=== PATIENT | female | born 1985 | race Caucasian/White ===

== ENCOUNTER 2019-04-18 08:44 | Day surgery (SDC) | payer MEDICAID ==
[2019-04-13 11:59] LABS: BASOPHILS % (AUTO) 0.5 % (0-1); EOSINOPHILS # (AUTO) 0.1 X10'3 (0-0.9); EOSINOPHILS % (AUTO) 1.2 % (0-6); LYMPHOCYTES # (AUTO) 1.9 X10'3 (1.1-4.8); LYMPHOCYTES % (AUTO) 27.7 % (21-51); MEAN CORPUSCULAR HEMOGLOBIN 29.3 PG (27.0-31.0); MEAN CORPUSCULAR HGB CONC 33.9 g/dL (33.0-36.5); MEAN CORPUSCULAR VOLUME 86.3 FL (78-98); MEAN PLATELET VOLUME 7.3 FL (7.4-10.4); MONOCYTES # (AUTO) 0.4 X10'3 (0-0.9); MONOCYTES % (AUTO) 5.8 % (2-12); NEUTROPHILS # (AUTO) 4.6 X10'3 (1.8-7.7); NEUTROPHILS % (AUTO) 64.8 % (42-75); PRE OP HEMATOCRIT 39.5 % (35.0-45.0); PRE OP HEMOGLOBIN 13.4 g/dL (12.0-16.0); PRE OP PLATELET COUNT 312 X10'3 (140-440); RED BLOOD COUNT 4.58 X10'6 (4.20-5.60); RED CELL DISTRIBUTION WIDTH 12.7 % (11.5-14.5)
[2019-04-13 12:13] LABS: ALBUMIN 3.9 G/DL (3.4-5.0); ALBUMIN/GLOBULIN RATIO 1.1 (1.1-1.5); ALKALINE PHOSPHATASE 72 IU/L (46-116); BLOOD UREA NITROGEN 11 MG/DL (7-18); BUN/CREATININE RATIO 15.9 (6.6-38.0); CALCIUM 8.9 MG/DL (8.5-10.1); CHLORIDE 104 MMOL/L (99-107); CREATININE 0.69 MG/DL (0.40-0.90); PRE OP ALT 37 U/L (30-65); PRE OP ANION GAP 6 (8-16); PRE OP AST 23 U/L (10-37); PRE OP BILIRUB, TOTAL 0.3 MG/DL (0.0-1.0); PRE OP GLUCOSE 72 MG/DL (70-104); PRE OP POTASSIUM 3.8 MMOL/L (3.4-5.1); PRE OP SODIUM 140 MMOL/L (135-145); TOTAL CARBON DIOXIDE 30.1 MMOL/L (24-32); TOTAL PROTEIN 7.5 G/DL (6.4-8.2); eGFR > 90 ML/MIN
[2019-04-13 13:00] LABS: HCG SERUM QL NEGATIVE
[~2019-04-18] VITALS: Ht 177.8 cm; Wt 116.6 kg
[2019-04-18] VITALS (9 sets, daily range): BP systolic 123–142; BP diastolic 70–80
[~2019-04-18 08:44] MED LIST: CHOL50004 PO; DOCUMENT DATE & TIME OF BETA-BLOCKER PO ONE; FLUO-1 PO; LEVO750T21 PO; METO-395 PO; METR-159 PO; ONDA4TAB12 PO; RIZA10TA98 PO; SUMA100T16 PO; clindamycin-Cleocin 900mg/D5W 50 ML IV ONE; famotidine 20mg tablet PO ONE; ringers solution, lacted 1,000 ML IV SCH
[2019-04-18] MEDS ORDERED: LIDOcaine 1% 30ml preserv. free vial ONE (09:39)
[2019-04-18] MEDS ORDERED: BUPIVAcaine/PF 2.5 mg/ml (0.25%) 30ml vial ONE (09:40)
[2019-04-18] MEDS ORDERED: ringers solution, lacted 1,000 ML IV SCH (10:32)
[2019-04-18] MEDS ORDERED: fentaNYL/PF 50MCG/1 ML 2ML syringe IV PRN ×2 (10:35)
[2019-04-18] MEDS ORDERED: labetalol 20mg/4ml (5mg/ml) syringe IV PRN (10:35)
[2019-04-18] MEDS ORDERED: morphine 4 MG/ML inj SYRINge IV PRN ×2 (10:35)
[2019-04-18] MEDS ORDERED: hydrALAZINE 20mg/ml inj. IV PRN (10:35)
[2019-04-18] MEDS ORDERED: ondansetron/PF 4mg/2ml inj IV PRN (10:35)
[2019-04-18] MEDS ORDERED: MIDAZolam 1mg/ml 10ml vial ONE (10:36)
[2019-04-18] MEDS ORDERED: fentaNYL/PF 50MCG/1 ML 2ML syringe ONE (10:36)
[2019-04-18] MEDS ORDERED: labetalol 20mg/4ml (5mg/ml) syringe IV ONE ×2 (10:44→10:58)
[2019-04-18] MEDS ORDERED: hydrALAZINE 20mg/ml inj. IV ONE (10:51)
--- NOTE | 2019-04-18 11:12 | NUR ---
Received from OR via , accompanied by Anesthesiologist DARRELL and report given by Anesthesiolgist. AWAKE IN NO RESP DISTRESS SKIN WARM AND DRY HOB ELEVATED, DSG DI, NO CO PAIN, VS WNL
[2019-04-18] MEDS ORDERED: oxyCODONE/APAP 5-325mg tablet PO PRN (11:25)
--- NOTE | 2019-04-18 12:22 | NUR ---
AWAKE VS WNL, DSG DI, NO CO PAIN, REFUSES LIQUIDS, NO NAUSEA, DISCH INST GIVEN TO PT AND MOM, SCRIPT SENT WITH PT HOME..
== END 2019-04-18 12:22 | disposition home or self-care (01) ==
LOC: PAS 08:44
PROVIDERS: ATTEND Surgery
DX: R22.2 Localized swelling, mass and lump, trunk (principal); I10 Essential (primary) hypertension; F41.9 Anxiety disorder, unspecified; F32.9 Major depressive disorder, single episode, unspecified; G43.909 Migraine, unspecified, not intractable, without status migrainosus; J45.909 Unspecified asthma, uncomplicated; E66.9 Obesity, unspecified; Z68.37 Body mass index [BMI] 37.0-37.9, adult; Z88.8 Allergy status to other drugs, medicaments and biological substances; Z90.49 Acquired absence of other specified parts of digestive tract; Z91.09 Other allergy status, other than to drugs and biological substances; Z79.899 Other long term (current) drug therapy; Z88.0 Allergy status to penicillin; Z88.2 Allergy status to sulfonamides; Z87.891 Personal history of nicotine dependence; Z91.030 Bee allergy status; Z91.013 Allergy to seafood; Z91.018 Allergy to other foods; Z86.14 Personal history of Methicillin resistant Staphylococcus aureus infection
CPT/HCPCS: 27043; 36415; 80053; 82948; 84703; 85025; 93005; J0360; J2001; J2250; J3010; J3490; J7120; A4215; A4618; A7000

== ENCOUNTER 2019-05-18 10:05 | Day surgery (SDC) | payer MEDICAID ==
[~2019-05-18 10:05] MED LIST changes: -DOCUMENT DATE & TIME OF BETA-BLOCKER PO ONE; -clindamycin-Cleocin 900mg/D5W 50 ML IV ONE; -famotidine 20mg tablet PO ONE; -ringers solution, lacted 1,000 ML IV SCH
[2019-05-18] MEDS ORDERED: LIDOcaine 2% 5ml jelly ONE (10:42)
== END 2019-05-18 11:35 | disposition home or self-care (01) ==
LOC: WOUND CARE 10:05
PROVIDERS: ATTEND Surgery
DX: T81.89XD Other complications of procedures, not elsewhere classified, subsequent encounter (principal); L76.34 Postprocedural seroma of skin and subcutaneous tissue following other procedure; I10 Essential (primary) hypertension; G43.909 Migraine, unspecified, not intractable, without status migrainosus; E66.9 Obesity, unspecified; J45.909 Unspecified asthma, uncomplicated; E28.2 Polycystic ovarian syndrome; F32.9 Major depressive disorder, single episode, unspecified; F41.9 Anxiety disorder, unspecified; Z90.49 Acquired absence of other specified parts of digestive tract; Z68.35 Body mass index [BMI] 35.0-35.9, adult; Z79.899 Other long term (current) drug therapy; Z87.891 Personal history of nicotine dependence; Z86.14 Personal history of Methicillin resistant Staphylococcus aureus infection; Y92.89 Other specified places as the place of occurrence of the external cause; Y83.8 Other surgical procedures as the cause of abnormal reaction of the patient, or of later complication, without mention of misadventure at the time of the procedure
CPT/HCPCS: 10140; A6266; A4663

== ENCOUNTER 2019-05-22 09:08 | Day surgery (SDC) | payer MEDICAID ==
[2019-05-22] MEDS ORDERED: LIDOcaine 2% 5ml jelly ONE (09:29)
== END 2019-05-22 10:50 | disposition home or self-care (01) ==
LOC: WOUND CARE 09:08
PROVIDERS: ATTEND Surgery
DX: T81.89XD Other complications of procedures, not elsewhere classified, subsequent encounter (principal); L76.34 Postprocedural seroma of skin and subcutaneous tissue following other procedure; I10 Essential (primary) hypertension; E28.2 Polycystic ovarian syndrome; G43.909 Migraine, unspecified, not intractable, without status migrainosus; E66.9 Obesity, unspecified; F32.9 Major depressive disorder, single episode, unspecified; J45.909 Unspecified asthma, uncomplicated; F41.9 Anxiety disorder, unspecified; Z79.899 Other long term (current) drug therapy; Z68.35 Body mass index [BMI] 35.0-35.9, adult; Z90.49 Acquired absence of other specified parts of digestive tract; Z87.891 Personal history of nicotine dependence; Z86.14 Personal history of Methicillin resistant Staphylococcus aureus infection; Y83.8 Other surgical procedures as the cause of abnormal reaction of the patient, or of later complication, without mention of misadventure at the time of the procedure
CPT/HCPCS: 97597; A6266; A4663

== ENCOUNTER 2019-05-25 09:25 | Outpatient (CLI) | payer MEDICAID ==
[2019-05-25] MEDS ORDERED: LIDOcaine 2% 5ml jelly ONE (09:36)
== END 2019-05-25 10:17 | disposition home or self-care (01) ==
LOC: WOUND CARE 09:25 → EDSTATUS 09:30 → WOUND CARE 10:17
PROVIDERS: ATTEND Surgery
DX: T81.89XD Other complications of procedures, not elsewhere classified, subsequent encounter (principal); L76.34 Postprocedural seroma of skin and subcutaneous tissue following other procedure; I10 Essential (primary) hypertension; G43.909 Migraine, unspecified, not intractable, without status migrainosus; E66.9 Obesity, unspecified; J45.909 Unspecified asthma, uncomplicated; E28.2 Polycystic ovarian syndrome; F32.9 Major depressive disorder, single episode, unspecified; F41.9 Anxiety disorder, unspecified; Z90.49 Acquired absence of other specified parts of digestive tract; Z68.35 Body mass index [BMI] 35.0-35.9, adult; Z79.899 Other long term (current) drug therapy; Z87.891 Personal history of nicotine dependence; Z86.14 Personal history of Methicillin resistant Staphylococcus aureus infection; Y92.89 Other specified places as the place of occurrence of the external cause; Y83.8 Other surgical procedures as the cause of abnormal reaction of the patient, or of later complication, without mention of misadventure at the time of the procedure
CPT/HCPCS: A6266; G0463; A4663

== ENCOUNTER 2019-05-29 09:15 | Outpatient (CLI) | payer MEDICAID ==
[2019-05-29] MEDS ORDERED: LIDOcaine 2% 5ml jelly ONE (09:59)
== END 2019-05-29 11:20 | disposition home or self-care (01) ==
LOC: WOUND CARE 09:15 → EDSTATUS 09:30 → WOUND CARE 11:20
PROVIDERS: ATTEND Surgery
DX: T81.89XD Other complications of procedures, not elsewhere classified, subsequent encounter (principal); L76.34 Postprocedural seroma of skin and subcutaneous tissue following other procedure; I10 Essential (primary) hypertension; G43.909 Migraine, unspecified, not intractable, without status migrainosus; E66.9 Obesity, unspecified; J45.909 Unspecified asthma, uncomplicated; E28.2 Polycystic ovarian syndrome; F32.9 Major depressive disorder, single episode, unspecified; F41.9 Anxiety disorder, unspecified; Z90.49 Acquired absence of other specified parts of digestive tract; Z68.35 Body mass index [BMI] 35.0-35.9, adult; Z79.899 Other long term (current) drug therapy; Z87.891 Personal history of nicotine dependence; Z86.14 Personal history of Methicillin resistant Staphylococcus aureus infection; Y83.8 Other surgical procedures as the cause of abnormal reaction of the patient, or of later complication, without mention of misadventure at the time of the procedure
CPT/HCPCS: A4663; A6021; G0463

== ENCOUNTER 2019-06-05 09:00 | Outpatient (CLI) | payer MEDICAID ==
[2019-06-05] MEDS ORDERED: LIDOcaine 2% 5ml jelly ONE (09:58)
== END 2019-06-05 10:36 | disposition home or self-care (01) ==
LOC: EDSTATUS 09:00 → WOUND CARE 09:00
PROVIDERS: ATTEND Surgery
DX: T81.89XD Other complications of procedures, not elsewhere classified, subsequent encounter (principal); L76.34 Postprocedural seroma of skin and subcutaneous tissue following other procedure; I10 Essential (primary) hypertension; G43.909 Migraine, unspecified, not intractable, without status migrainosus; E66.9 Obesity, unspecified; J45.909 Unspecified asthma, uncomplicated; E28.2 Polycystic ovarian syndrome; F32.9 Major depressive disorder, single episode, unspecified; F41.9 Anxiety disorder, unspecified; Z90.49 Acquired absence of other specified parts of digestive tract; Z68.35 Body mass index [BMI] 35.0-35.9, adult; Z79.899 Other long term (current) drug therapy; Z87.891 Personal history of nicotine dependence; Z86.14 Personal history of Methicillin resistant Staphylococcus aureus infection; Y83.8 Other surgical procedures as the cause of abnormal reaction of the patient, or of later complication, without mention of misadventure at the time of the procedure
CPT/HCPCS: A4663; A6021; A6154; A6212; G0463

== ENCOUNTER 2019-06-12 09:05 | Outpatient (CLI) | payer MEDICAID ==
[2019-06-12] MEDS ORDERED: LIDOcaine 2% 5ml jelly ONE (09:37)
== END 2019-06-12 10:43 | disposition home or self-care (01) ==
LOC: WOUND CARE 09:05
PROVIDERS: ATTEND Surgery
DX: T81.89XD Other complications of procedures, not elsewhere classified, subsequent encounter (principal); L76.34 Postprocedural seroma of skin and subcutaneous tissue following other procedure; I10 Essential (primary) hypertension; G43.909 Migraine, unspecified, not intractable, without status migrainosus; E28.2 Polycystic ovarian syndrome; F32.9 Major depressive disorder, single episode, unspecified; F41.9 Anxiety disorder, unspecified; Z90.49 Acquired absence of other specified parts of digestive tract; Z68.35 Body mass index [BMI] 35.0-35.9, adult; Z79.899 Other long term (current) drug therapy; Z87.891 Personal history of nicotine dependence; Z86.14 Personal history of Methicillin resistant Staphylococcus aureus infection; Y83.8 Other surgical procedures as the cause of abnormal reaction of the patient, or of later complication, without mention of misadventure at the time of the procedure
CPT/HCPCS: G0283; G0463

== ENCOUNTER 2019-07-03 09:00 | Day surgery (SDC) | payer MEDICAID ==
[2019-07-03] MEDS ORDERED: LIDOcaine 2% 5ml jelly ONE (10:09)
== END 2019-07-03 10:43 | disposition home or self-care (01) ==
LOC: WOUND CARE 09:00
PROVIDERS: ATTEND Surgery
DX: T81.89XD Other complications of procedures, not elsewhere classified, subsequent encounter (principal); L98.492 Non-pressure chronic ulcer of skin of other sites with fat layer exposed; L76.34 Postprocedural seroma of skin and subcutaneous tissue following other procedure; I10 Essential (primary) hypertension; G43.909 Migraine, unspecified, not intractable, without status migrainosus; E28.2 Polycystic ovarian syndrome; F32.9 Major depressive disorder, single episode, unspecified; F41.9 Anxiety disorder, unspecified; Z90.49 Acquired absence of other specified parts of digestive tract; Z68.35 Body mass index [BMI] 35.0-35.9, adult; Z79.899 Other long term (current) drug therapy; Z87.891 Personal history of nicotine dependence; Z86.14 Personal history of Methicillin resistant Staphylococcus aureus infection; Y83.8 Other surgical procedures as the cause of abnormal reaction of the patient, or of later complication, without mention of misadventure at the time of the procedure
CPT/HCPCS: 97597

== ENCOUNTER 2019-07-10 09:06 | Day surgery (SDC) | payer MEDICAID ==
[2019-07-10] MEDS ORDERED: LIDOcaine 2% 5ml jelly ONE (10:04)
== END 2019-07-10 10:45 | disposition home or self-care (01) ==
LOC: WOUND CARE 09:06
PROVIDERS: ATTEND Surgery
DX: T81.89XD Other complications of procedures, not elsewhere classified, subsequent encounter (principal); L98.492 Non-pressure chronic ulcer of skin of other sites with fat layer exposed; L76.34 Postprocedural seroma of skin and subcutaneous tissue following other procedure; I10 Essential (primary) hypertension; G43.909 Migraine, unspecified, not intractable, without status migrainosus; E28.2 Polycystic ovarian syndrome; F32.9 Major depressive disorder, single episode, unspecified; F41.9 Anxiety disorder, unspecified; Z90.49 Acquired absence of other specified parts of digestive tract; Z68.35 Body mass index [BMI] 35.0-35.9, adult; Z79.899 Other long term (current) drug therapy; Z87.891 Personal history of nicotine dependence; Z86.14 Personal history of Methicillin resistant Staphylococcus aureus infection; Y83.8 Other surgical procedures as the cause of abnormal reaction of the patient, or of later complication, without mention of misadventure at the time of the procedure
CPT/HCPCS: 97597; A6021; A6212

== ENCOUNTER 2019-07-17 09:10 | Day surgery (SDC) | payer MEDICAID ==
[2019-07-17] MEDS ORDERED: LIDOcaine 2% 5ml jelly ONE (10:19)
== END 2019-07-17 10:57 | disposition home or self-care (01) ==
LOC: WOUND CARE 09:10
PROVIDERS: ATTEND Surgery
DX: T81.89XD Other complications of procedures, not elsewhere classified, subsequent encounter (principal); L98.492 Non-pressure chronic ulcer of skin of other sites with fat layer exposed; L76.34 Postprocedural seroma of skin and subcutaneous tissue following other procedure; I10 Essential (primary) hypertension; G43.909 Migraine, unspecified, not intractable, without status migrainosus; E28.2 Polycystic ovarian syndrome; F32.9 Major depressive disorder, single episode, unspecified; F41.9 Anxiety disorder, unspecified; Z90.49 Acquired absence of other specified parts of digestive tract; Z68.35 Body mass index [BMI] 35.0-35.9, adult; Z79.899 Other long term (current) drug therapy; Z87.891 Personal history of nicotine dependence; Z86.14 Personal history of Methicillin resistant Staphylococcus aureus infection; Y83.8 Other surgical procedures as the cause of abnormal reaction of the patient, or of later complication, without mention of misadventure at the time of the procedure
CPT/HCPCS: 97597; A4663; A6021; A6212

== ENCOUNTER 2019-07-24 09:09 | Day surgery (SDC) | payer MEDICAID ==
[2019-07-24] MEDS ORDERED: LIDOcaine 2% 5ml jelly ONE (10:34)
[2019-07-24] MEDS ORDERED: Silvasorb gel 45gm tube TP ONE (10:55)
== END 2019-07-24 11:12 | disposition home or self-care (01) ==
LOC: WOUND CARE 09:09
PROVIDERS: ATTEND Surgery
DX: T81.89XD Other complications of procedures, not elsewhere classified, subsequent encounter (principal); L98.492 Non-pressure chronic ulcer of skin of other sites with fat layer exposed; L76.34 Postprocedural seroma of skin and subcutaneous tissue following other procedure; I10 Essential (primary) hypertension; G43.909 Migraine, unspecified, not intractable, without status migrainosus; E28.2 Polycystic ovarian syndrome; F32.9 Major depressive disorder, single episode, unspecified; F41.9 Anxiety disorder, unspecified; Z90.49 Acquired absence of other specified parts of digestive tract; Z68.35 Body mass index [BMI] 35.0-35.9, adult; Z79.899 Other long term (current) drug therapy; Z87.891 Personal history of nicotine dependence; Z86.14 Personal history of Methicillin resistant Staphylococcus aureus infection; Y83.8 Other surgical procedures as the cause of abnormal reaction of the patient, or of later complication, without mention of misadventure at the time of the procedure
CPT/HCPCS: 97597

== ENCOUNTER 2019-07-31 09:28 | Day surgery (SDC) | payer MEDICAID ==
[~2019-07-31 09:28] MED LIST changes: +LIDOcaine 2% 5ml jelly ONE
== END 2019-07-31 10:13 | disposition home or self-care (01) ==
LOC: WOUND CARE 09:28
PROVIDERS: ATTEND Surgery
DX: T81.89XD Other complications of procedures, not elsewhere classified, subsequent encounter (principal); L98.492 Non-pressure chronic ulcer of skin of other sites with fat layer exposed; L76.34 Postprocedural seroma of skin and subcutaneous tissue following other procedure; I10 Essential (primary) hypertension; G43.909 Migraine, unspecified, not intractable, without status migrainosus; E28.2 Polycystic ovarian syndrome; F32.9 Major depressive disorder, single episode, unspecified; F41.9 Anxiety disorder, unspecified; Z90.49 Acquired absence of other specified parts of digestive tract; Z68.35 Body mass index [BMI] 35.0-35.9, adult; Z79.899 Other long term (current) drug therapy; Z87.891 Personal history of nicotine dependence; Z86.14 Personal history of Methicillin resistant Staphylococcus aureus infection; Y83.8 Other surgical procedures as the cause of abnormal reaction of the patient, or of later complication, without mention of misadventure at the time of the procedure
CPT/HCPCS: 97597

== ENCOUNTER 2019-08-07 09:00 | Day surgery (SDC) | payer MEDICAID ==
[~2019-08-07 09:00] MED LIST changes: -LIDOcaine 2% 5ml jelly ONE
[2019-08-07] MEDS ORDERED: LIDOcaine 2% 5ml jelly ONE (09:30)
== END 2019-08-07 10:20 | disposition home or self-care (01) ==
LOC: WOUND CARE 09:00
PROVIDERS: ATTEND Emergency Medicine
DX: T81.89XD Other complications of procedures, not elsewhere classified, subsequent encounter (principal); L98.492 Non-pressure chronic ulcer of skin of other sites with fat layer exposed; L76.34 Postprocedural seroma of skin and subcutaneous tissue following other procedure; I10 Essential (primary) hypertension; G43.909 Migraine, unspecified, not intractable, without status migrainosus; E28.2 Polycystic ovarian syndrome; F32.9 Major depressive disorder, single episode, unspecified; F41.9 Anxiety disorder, unspecified; Z90.49 Acquired absence of other specified parts of digestive tract; Z68.35 Body mass index [BMI] 35.0-35.9, adult; Z79.899 Other long term (current) drug therapy; Z87.891 Personal history of nicotine dependence; Z86.14 Personal history of Methicillin resistant Staphylococcus aureus infection; Y83.8 Other surgical procedures as the cause of abnormal reaction of the patient, or of later complication, without mention of misadventure at the time of the procedure
CPT/HCPCS: 97597

== ENCOUNTER 2019-08-17 09:15 | Outpatient (CLI) | payer MEDICAID ==
[2019-08-14 15:47] VITALS: BP 123/59
[~2019-08-17 09:15] MED LIST changes: -LEVO750T21 PO; -METR-159 PO; -ONDA4TAB12 PO; +OXYC-150 PO; -RIZA10TA98 PO; -SUMA100T16 PO; +albuterol inhaler
[2019-08-17] MEDS ORDERED: LIDOcaine 2% 5ml jelly ONE ×2 (09:46→09:53)
== END 2019-08-17 10:52 | disposition home or self-care (01) ==
LOC: WOUND CARE 09:15 → EDSTATUS 09:20 → WOUND CARE 10:52
PROVIDERS: ATTEND Surgery
DX: T81.89XA Other complications of procedures, not elsewhere classified, initial encounter (principal); L98.492 Non-pressure chronic ulcer of skin of other sites with fat layer exposed; I10 Essential (primary) hypertension; I83.90 Asymptomatic varicose veins of unspecified lower extremity; E28.2 Polycystic ovarian syndrome; G43.909 Migraine, unspecified, not intractable, without status migrainosus; F41.9 Anxiety disorder, unspecified; F32.9 Major depressive disorder, single episode, unspecified; Z79.899 Other long term (current) drug therapy; Z86.14 Personal history of Methicillin resistant Staphylococcus aureus infection; Z87.891 Personal history of nicotine dependence; Z90.49 Acquired absence of other specified parts of digestive tract; Y83.8 Other surgical procedures as the cause of abnormal reaction of the patient, or of later complication, without mention of misadventure at the time of the procedure; Y92.89 Other specified places as the place of occurrence of the external cause
CPT/HCPCS: 97605

== ENCOUNTER 2019-08-21 09:14 | Outpatient (CLI) | payer MEDICAID ==
[2019-08-14 15:47] VITALS: BP 123/59
[2019-08-21] MEDS ORDERED: LIDOcaine 2% 5ml jelly ONE (09:31)
== END 2019-08-21 10:12 | disposition home or self-care (01) ==
LOC: WOUND CARE 09:14 → EDSTATUS 09:20 → WOUND CARE 10:12
PROVIDERS: ATTEND Nurse Practitioner
DX: T81.89XD Other complications of procedures, not elsewhere classified, subsequent encounter (principal); L98.492 Non-pressure chronic ulcer of skin of other sites with fat layer exposed; I10 Essential (primary) hypertension; I83.90 Asymptomatic varicose veins of unspecified lower extremity; E28.2 Polycystic ovarian syndrome; G43.909 Migraine, unspecified, not intractable, without status migrainosus; F41.9 Anxiety disorder, unspecified; F32.9 Major depressive disorder, single episode, unspecified; Z79.899 Other long term (current) drug therapy; Z86.14 Personal history of Methicillin resistant Staphylococcus aureus infection; Z87.891 Personal history of nicotine dependence; Z90.49 Acquired absence of other specified parts of digestive tract; Y83.8 Other surgical procedures as the cause of abnormal reaction of the patient, or of later complication, without mention of misadventure at the time of the procedure
CPT/HCPCS: 97605

== ENCOUNTER 2019-08-24 09:12 | Outpatient (CLI) | payer MEDICAID ==
[2019-08-14 15:47] VITALS: BP 123/59
[2019-08-24] MEDS ORDERED: LIDOcaine 2% 5ml jelly ONE (09:29)
== END 2019-08-24 10:02 | disposition home or self-care (01) ==
LOC: WOUND CARE 09:12
PROVIDERS: ATTEND Nurse Practitioner
DX: T81.89XD Other complications of procedures, not elsewhere classified, subsequent encounter (principal); L98.492 Non-pressure chronic ulcer of skin of other sites with fat layer exposed; I10 Essential (primary) hypertension; I83.90 Asymptomatic varicose veins of unspecified lower extremity; E28.2 Polycystic ovarian syndrome; G43.909 Migraine, unspecified, not intractable, without status migrainosus; F41.9 Anxiety disorder, unspecified; F32.9 Major depressive disorder, single episode, unspecified; Z79.899 Other long term (current) drug therapy; Z86.14 Personal history of Methicillin resistant Staphylococcus aureus infection; Z87.891 Personal history of nicotine dependence; Z90.49 Acquired absence of other specified parts of digestive tract; Y83.8 Other surgical procedures as the cause of abnormal reaction of the patient, or of later complication, without mention of misadventure at the time of the procedure
CPT/HCPCS: 97605

== ENCOUNTER 2019-08-28 09:20 | Day surgery (SDC) | payer MEDICAID ==
[2019-08-14 15:47] VITALS: BP 123/59
[2019-08-28] MEDS ORDERED: LIDOcaine 2% 5ml jelly ONE (09:37)
== END 2019-08-28 10:15 | disposition home or self-care (01) ==
LOC: WOUND CARE 09:20
PROVIDERS: ATTEND Nurse Practitioner
DX: T81.89XD Other complications of procedures, not elsewhere classified, subsequent encounter (principal); L98.492 Non-pressure chronic ulcer of skin of other sites with fat layer exposed; I10 Essential (primary) hypertension; I83.90 Asymptomatic varicose veins of unspecified lower extremity; E28.2 Polycystic ovarian syndrome; G43.909 Migraine, unspecified, not intractable, without status migrainosus; F41.9 Anxiety disorder, unspecified; F32.9 Major depressive disorder, single episode, unspecified; Z79.899 Other long term (current) drug therapy; Z86.19 Personal history of other infectious and parasitic diseases; Z87.891 Personal history of nicotine dependence; Z90.49 Acquired absence of other specified parts of digestive tract; Y83.8 Other surgical procedures as the cause of abnormal reaction of the patient, or of later complication, without mention of misadventure at the time of the procedure
CPT/HCPCS: 97597

== ENCOUNTER 2019-09-04 09:10 | Day surgery (SDC) | payer MEDICAID ==
[2019-08-14 15:47] VITALS: BP 123/59
[2019-09-04] MEDS ORDERED: LIDOcaine 2% 5ml jelly ONE (09:24)
== END 2019-09-04 10:20 | disposition home or self-care (01) ==
LOC: WOUND CARE 09:10
PROVIDERS: ATTEND Nurse Practitioner
DX: T81.89XD Other complications of procedures, not elsewhere classified, subsequent encounter (principal); L98.492 Non-pressure chronic ulcer of skin of other sites with fat layer exposed; I10 Essential (primary) hypertension; I83.90 Asymptomatic varicose veins of unspecified lower extremity; E28.2 Polycystic ovarian syndrome; G43.909 Migraine, unspecified, not intractable, without status migrainosus; F41.9 Anxiety disorder, unspecified; F32.9 Major depressive disorder, single episode, unspecified; Z79.899 Other long term (current) drug therapy; Z86.19 Personal history of other infectious and parasitic diseases; Z87.891 Personal history of nicotine dependence; Z90.49 Acquired absence of other specified parts of digestive tract; Y83.8 Other surgical procedures as the cause of abnormal reaction of the patient, or of later complication, without mention of misadventure at the time of the procedure
CPT/HCPCS: 11042; 97605

== ENCOUNTER 2019-09-07 09:20 | Outpatient (CLI) | payer MEDICAID ==
[2019-08-14 15:47] VITALS: BP 123/59
[2019-09-07] MEDS ORDERED: LIDOcaine 2% 5ml jelly ONE (09:34)
== END 2019-09-07 10:17 | disposition home or self-care (01) ==
LOC: EDSTATUS 09:20 → WOUND CARE 09:20
PROVIDERS: ATTEND Nurse Practitioner
DX: T81.89XD Other complications of procedures, not elsewhere classified, subsequent encounter (principal); L98.492 Non-pressure chronic ulcer of skin of other sites with fat layer exposed; I10 Essential (primary) hypertension; I83.90 Asymptomatic varicose veins of unspecified lower extremity; E28.2 Polycystic ovarian syndrome; G43.909 Migraine, unspecified, not intractable, without status migrainosus; F41.9 Anxiety disorder, unspecified; F32.9 Major depressive disorder, single episode, unspecified; Z79.899 Other long term (current) drug therapy; Z86.19 Personal history of other infectious and parasitic diseases; Z87.891 Personal history of nicotine dependence; Z90.49 Acquired absence of other specified parts of digestive tract; Y83.8 Other surgical procedures as the cause of abnormal reaction of the patient, or of later complication, without mention of misadventure at the time of the procedure
CPT/HCPCS: 97605

== ENCOUNTER 2019-09-11 09:12 | Day surgery (SDC) | payer MEDICAID ==
[2019-08-14 15:47] VITALS: BP 123/59
[2019-09-11] MEDS ORDERED: LIDOcaine 2% 5ml jelly ONE (09:26)
== END 2019-09-11 10:30 | disposition home or self-care (01) ==
LOC: WOUND CARE 09:12
PROVIDERS: ATTEND Nurse Practitioner
DX: T81.89XD Other complications of procedures, not elsewhere classified, subsequent encounter (principal); L98.492 Non-pressure chronic ulcer of skin of other sites with fat layer exposed; I10 Essential (primary) hypertension; I83.90 Asymptomatic varicose veins of unspecified lower extremity; E28.2 Polycystic ovarian syndrome; G43.909 Migraine, unspecified, not intractable, without status migrainosus; F41.9 Anxiety disorder, unspecified; F32.9 Major depressive disorder, single episode, unspecified; Z79.899 Other long term (current) drug therapy; Z86.19 Personal history of other infectious and parasitic diseases; Z87.891 Personal history of nicotine dependence; Z90.49 Acquired absence of other specified parts of digestive tract; Y83.8 Other surgical procedures as the cause of abnormal reaction of the patient, or of later complication, without mention of misadventure at the time of the procedure
CPT/HCPCS: 97597; 97605

== ENCOUNTER 2019-09-14 09:11 | Day surgery (SDC) | payer MEDICAID ==
[2019-08-14 15:47] VITALS: BP 123/59
[2019-09-14] MEDS ORDERED: LIDOcaine 2% 5ml jelly ONE (09:36)
== END 2019-09-14 10:43 | disposition home or self-care (01) ==
LOC: WOUND CARE 09:11
PROVIDERS: ATTEND Nurse Practitioner
DX: T81.89XD Other complications of procedures, not elsewhere classified, subsequent encounter (principal); L98.492 Non-pressure chronic ulcer of skin of other sites with fat layer exposed; I10 Essential (primary) hypertension; I83.90 Asymptomatic varicose veins of unspecified lower extremity; E28.2 Polycystic ovarian syndrome; G43.909 Migraine, unspecified, not intractable, without status migrainosus; F41.9 Anxiety disorder, unspecified; F32.9 Major depressive disorder, single episode, unspecified; Z79.899 Other long term (current) drug therapy; Z86.19 Personal history of other infectious and parasitic diseases; Z87.891 Personal history of nicotine dependence; Z90.49 Acquired absence of other specified parts of digestive tract; Y83.8 Other surgical procedures as the cause of abnormal reaction of the patient, or of later complication, without mention of misadventure at the time of the procedure
CPT/HCPCS: 97597

== ENCOUNTER 2019-09-18 09:15 | Day surgery (SDC) | payer MEDICAID ==
[2019-08-14 15:47] VITALS: BP 123/59
[2019-09-18] MEDS ORDERED: LIDOcaine 2% 5ml jelly ONE (09:25)
== END 2019-09-18 10:25 | disposition home or self-care (01) ==
LOC: WOUND CARE 09:15
PROVIDERS: ATTEND Nurse Practitioner
DX: T81.89XD Other complications of procedures, not elsewhere classified, subsequent encounter (principal); L98.492 Non-pressure chronic ulcer of skin of other sites with fat layer exposed; I10 Essential (primary) hypertension; I83.90 Asymptomatic varicose veins of unspecified lower extremity; E28.2 Polycystic ovarian syndrome; G43.909 Migraine, unspecified, not intractable, without status migrainosus; E66.01 Morbid (severe) obesity due to excess calories; G89.29 Other chronic pain; J45.909 Unspecified asthma, uncomplicated; F41.9 Anxiety disorder, unspecified; F12.90 Cannabis use, unspecified, uncomplicated; F32.9 Major depressive disorder, single episode, unspecified; Z79.899 Other long term (current) drug therapy; Z86.19 Personal history of other infectious and parasitic diseases; Z87.891 Personal history of nicotine dependence; Z90.49 Acquired absence of other specified parts of digestive tract; Z86.14 Personal history of Methicillin resistant Staphylococcus aureus infection; Z68.39 Body mass index [BMI] 39.0-39.9, adult; Z98.890 Other specified postprocedural states; Y83.8 Other surgical procedures as the cause of abnormal reaction of the patient, or of later complication, without mention of misadventure at the time of the procedure
CPT/HCPCS: 97597

== ENCOUNTER 2019-09-21 09:18 | Day surgery (SDC) | payer MEDICAID ==
[2019-08-14 15:47] VITALS: BP 123/59
[2019-09-21] MEDS ORDERED: LIDOcaine 2% 5ml jelly ONE (09:29)
== END 2019-09-21 10:42 | disposition home or self-care (01) ==
LOC: WOUND CARE 09:18
PROVIDERS: ATTEND Nurse Practitioner
DX: T81.89XD Other complications of procedures, not elsewhere classified, subsequent encounter (principal); L98.492 Non-pressure chronic ulcer of skin of other sites with fat layer exposed; I10 Essential (primary) hypertension; I83.90 Asymptomatic varicose veins of unspecified lower extremity; E28.2 Polycystic ovarian syndrome; G43.909 Migraine, unspecified, not intractable, without status migrainosus; E66.01 Morbid (severe) obesity due to excess calories; G89.29 Other chronic pain; J45.909 Unspecified asthma, uncomplicated; F41.9 Anxiety disorder, unspecified; F12.90 Cannabis use, unspecified, uncomplicated; F32.9 Major depressive disorder, single episode, unspecified; Z79.899 Other long term (current) drug therapy; Z86.19 Personal history of other infectious and parasitic diseases; Z87.891 Personal history of nicotine dependence; Z90.49 Acquired absence of other specified parts of digestive tract; Z86.14 Personal history of Methicillin resistant Staphylococcus aureus infection; Z68.39 Body mass index [BMI] 39.0-39.9, adult; Z98.890 Other specified postprocedural states; Y83.8 Other surgical procedures as the cause of abnormal reaction of the patient, or of later complication, without mention of misadventure at the time of the procedure
CPT/HCPCS: 97597

== ENCOUNTER 2019-09-25 09:19 | Day surgery (SDC) | payer MEDICAID ==
[2019-08-14 15:47] VITALS: BP 123/59
[2019-09-25] MEDS ORDERED: LIDOcaine 2% 5ml jelly ONE (09:47)
== END 2019-09-25 11:18 | disposition home or self-care (01) ==
LOC: WOUND CARE 09:19
PROVIDERS: ATTEND Nurse Practitioner
DX: T81.89XD Other complications of procedures, not elsewhere classified, subsequent encounter (principal); L98.492 Non-pressure chronic ulcer of skin of other sites with fat layer exposed; I10 Essential (primary) hypertension; I83.90 Asymptomatic varicose veins of unspecified lower extremity; E28.2 Polycystic ovarian syndrome; G43.909 Migraine, unspecified, not intractable, without status migrainosus; E66.01 Morbid (severe) obesity due to excess calories; G89.29 Other chronic pain; J45.909 Unspecified asthma, uncomplicated; F41.9 Anxiety disorder, unspecified; F12.90 Cannabis use, unspecified, uncomplicated; F32.9 Major depressive disorder, single episode, unspecified; Z79.899 Other long term (current) drug therapy; Z86.19 Personal history of other infectious and parasitic diseases; Z87.891 Personal history of nicotine dependence; Z90.49 Acquired absence of other specified parts of digestive tract; Z86.14 Personal history of Methicillin resistant Staphylococcus aureus infection; Z68.39 Body mass index [BMI] 39.0-39.9, adult; Z98.890 Other specified postprocedural states; Y83.8 Other surgical procedures as the cause of abnormal reaction of the patient, or of later complication, without mention of misadventure at the time of the procedure
CPT/HCPCS: 97597

== ENCOUNTER 2019-09-27 11:00 | Day surgery (SDC) | payer MEDICAID ==
[2019-08-14 15:47] VITALS: BP 123/59
[2019-09-27] MEDS ORDERED: LIDOcaine 2% 5ml jelly ONE (11:27)
== END 2019-09-27 13:14 | disposition home or self-care (01) ==
LOC: WOUND CARE 11:00
PROVIDERS: ATTEND Nurse Practitioner
DX: T81.89XD Other complications of procedures, not elsewhere classified, subsequent encounter (principal); L98.492 Non-pressure chronic ulcer of skin of other sites with fat layer exposed; I10 Essential (primary) hypertension; I83.90 Asymptomatic varicose veins of unspecified lower extremity; E28.2 Polycystic ovarian syndrome; G43.909 Migraine, unspecified, not intractable, without status migrainosus; E66.01 Morbid (severe) obesity due to excess calories; G89.29 Other chronic pain; J45.909 Unspecified asthma, uncomplicated; F41.9 Anxiety disorder, unspecified; F12.90 Cannabis use, unspecified, uncomplicated; F32.9 Major depressive disorder, single episode, unspecified; Z79.899 Other long term (current) drug therapy; Z86.19 Personal history of other infectious and parasitic diseases; Z87.891 Personal history of nicotine dependence; Z90.49 Acquired absence of other specified parts of digestive tract; Z86.14 Personal history of Methicillin resistant Staphylococcus aureus infection; Z68.39 Body mass index [BMI] 39.0-39.9, adult; Z98.890 Other specified postprocedural states; Y83.8 Other surgical procedures as the cause of abnormal reaction of the patient, or of later complication, without mention of misadventure at the time of the procedure
CPT/HCPCS: 97597

== ENCOUNTER 2019-10-05 14:26 | Day surgery (SDC) | payer MEDICAID ==
[2019-08-14 15:47] VITALS: BP 123/59
[2019-10-05] MEDS ORDERED: LIDOcaine 2% 5ml jelly ONE (14:39)
== END 2019-10-05 15:22 | disposition home or self-care (01) ==
LOC: WOUND CARE 14:26
PROVIDERS: ATTEND Nurse Practitioner
DX: T81.89XD Other complications of procedures, not elsewhere classified, subsequent encounter (principal); L98.492 Non-pressure chronic ulcer of skin of other sites with fat layer exposed; I10 Essential (primary) hypertension; I83.90 Asymptomatic varicose veins of unspecified lower extremity; E28.2 Polycystic ovarian syndrome; G43.909 Migraine, unspecified, not intractable, without status migrainosus; E66.01 Morbid (severe) obesity due to excess calories; G89.29 Other chronic pain; J45.909 Unspecified asthma, uncomplicated; F41.9 Anxiety disorder, unspecified; F12.90 Cannabis use, unspecified, uncomplicated; F32.9 Major depressive disorder, single episode, unspecified; Z79.899 Other long term (current) drug therapy; Z86.19 Personal history of other infectious and parasitic diseases; Z87.891 Personal history of nicotine dependence; Z90.49 Acquired absence of other specified parts of digestive tract; Z86.14 Personal history of Methicillin resistant Staphylococcus aureus infection; Z68.39 Body mass index [BMI] 39.0-39.9, adult; Z98.890 Other specified postprocedural states; Y83.8 Other surgical procedures as the cause of abnormal reaction of the patient, or of later complication, without mention of misadventure at the time of the procedure
CPT/HCPCS: 97597

== ENCOUNTER 2019-10-12 10:10 | Day surgery (SDC) | payer MEDICAID ==
[2019-08-14 15:47] VITALS: BP 123/59
[2019-10-12] MEDS ORDERED: LIDOcaine 2% 5ml jelly ONE (10:29)
== END 2019-10-12 11:02 | disposition home or self-care (01) ==
LOC: WOUND CARE 10:10
PROVIDERS: ATTEND Nurse Practitioner
DX: T81.89XD Other complications of procedures, not elsewhere classified, subsequent encounter (principal); L98.492 Non-pressure chronic ulcer of skin of other sites with fat layer exposed; I10 Essential (primary) hypertension; I83.90 Asymptomatic varicose veins of unspecified lower extremity; E28.2 Polycystic ovarian syndrome; G43.909 Migraine, unspecified, not intractable, without status migrainosus; E66.01 Morbid (severe) obesity due to excess calories; G89.29 Other chronic pain; J45.909 Unspecified asthma, uncomplicated; F41.9 Anxiety disorder, unspecified; F12.90 Cannabis use, unspecified, uncomplicated; F32.9 Major depressive disorder, single episode, unspecified; Z79.899 Other long term (current) drug therapy; Z86.19 Personal history of other infectious and parasitic diseases; Z87.891 Personal history of nicotine dependence; Z90.49 Acquired absence of other specified parts of digestive tract; Z86.14 Personal history of Methicillin resistant Staphylococcus aureus infection; Z68.39 Body mass index [BMI] 39.0-39.9, adult; Z98.890 Other specified postprocedural states; Y83.8 Other surgical procedures as the cause of abnormal reaction of the patient, or of later complication, without mention of misadventure at the time of the procedure
CPT/HCPCS: 97597

== ENCOUNTER 2019-10-19 13:25 | Outpatient (CLI) | payer MEDICAID ==
[2019-08-14 15:47] VITALS: BP 123/59
== END 2019-10-19 14:46 | disposition home or self-care (01) ==
LOC: WOUND CARE 13:25
PROVIDERS: ATTEND Nurse Practitioner
DX: T81.89XD Other complications of procedures, not elsewhere classified, subsequent encounter (principal); L98.492 Non-pressure chronic ulcer of skin of other sites with fat layer exposed; I10 Essential (primary) hypertension; I83.90 Asymptomatic varicose veins of unspecified lower extremity; E28.2 Polycystic ovarian syndrome; G43.909 Migraine, unspecified, not intractable, without status migrainosus; E66.01 Morbid (severe) obesity due to excess calories; G89.29 Other chronic pain; J45.909 Unspecified asthma, uncomplicated; F41.9 Anxiety disorder, unspecified; F12.90 Cannabis use, unspecified, uncomplicated; F32.9 Major depressive disorder, single episode, unspecified; Z79.899 Other long term (current) drug therapy; Z86.19 Personal history of other infectious and parasitic diseases; Z87.891 Personal history of nicotine dependence; Z90.49 Acquired absence of other specified parts of digestive tract; Z86.14 Personal history of Methicillin resistant Staphylococcus aureus infection; Z68.39 Body mass index [BMI] 39.0-39.9, adult; Z98.890 Other specified postprocedural states; Y83.8 Other surgical procedures as the cause of abnormal reaction of the patient, or of later complication, without mention of misadventure at the time of the procedure
CPT/HCPCS: G0463

== ENCOUNTER 2019-11-23 05:31 | Inpatient (IN) | payer MEDICAID ==
[2019-11-16 15:30] LABS: PREOP URINE HCG NEGATIVE (NEGATIVE)
[2019-11-16 15:31] LABS: CLARITY,URINE SLIGHTLY CLOUDY (Clear); COLOR,URINE YELLOW (Yellow); GLUCOSE, URINE NEGATIVE (Neg); KETONES,URINE NEGATIVE (Neg); LEUKOCYTE ESTERASE ,URINE NEGATIVE (Neg); NITRITES, URINE NEGATIVE (Neg); OCCULT BLOOD,URINE NEGATIVE (Neg); PROTEIN,URINE NEGATIVE (Neg); UROBILINOGEN,URINE 0.2 E.U/dL (0.2-1.0)
[2019-11-16 15:31] LABS: BASOPHILS % (AUTO) 0.6 % (0-1); EOSINOPHILS # (AUTO) 0.1 X10'3 (0-0.9); EOSINOPHILS % (AUTO) 1.5 % (0-6); LYMPHOCYTES # (AUTO) 2.5 X10'3 (1.1-4.8); MEAN CORPUSCULAR HEMOGLOBIN 28.8 PG (27.0-31.0); MEAN CORPUSCULAR HGB CONC 33.4 g/dL (33.0-36.5); MEAN CORPUSCULAR VOLUME 86.3 FL (78-98); MEAN PLATELET VOLUME 7.3 FL (7.4-10.4); MONOCYTES # (AUTO) 0.5 X10'3 (0-0.9); MONOCYTES % (AUTO) 5.4 % (2-12); NEUTROPHILS # (AUTO) 5.4 X10'3 (1.8-7.7); NEUTROPHILS % (AUTO) 63.5 % (42-75); PRE OP HEMATOCRIT 39.1 % (35.0-45.0); PRE OP HEMOGLOBIN 13.1 g/dL (12.0-16.0); PRE OP PLATELET COUNT 306 X10'3 (140-440); RED BLOOD COUNT 4.53 X10'6 (4.20-5.60); RED CELL DISTRIBUTION WIDTH 12.8 % (11.5-14.5)
[2019-11-16 15:32] LABS: UA COLLECTION TYPE CLN CATCH MIDSTREAM
[2019-11-16 15:41] LABS: MUCUS STRANDS MANY /LPF (Neg); SQUAMOUS EPITHELIAL CELL,UR MANY /LPF (FEW)
[2019-11-16 15:42] LABS: BACTERIA,URINE FEW /HPF (Neg); RBC,URINE 0-2 /HPF (0-2); WBC,URINE 0-4 /HPF (0-4)
[2019-11-16 15:55] LABS: ALBUMIN 4.1 G/DL (3.4-5.0); ALBUMIN/GLOBULIN RATIO 1.1 (1.1-1.5); ALKALINE PHOSPHATASE 66 IU/L (46-116); BLOOD UREA NITROGEN 11 MG/DL (7-18); BUN/CREATININE RATIO 14.5 (6.6-38.0); CALCIUM 8.6 MG/DL (8.5-10.1); CHLORIDE 106 MMOL/L (99-107); CREATININE 0.76 MG/DL (0.40-0.90); PRE OP ALT 49 U/L (30-65); PRE OP ANION GAP 9 (8-16); PRE OP AST 23 U/L (10-37); PRE OP BILIRUB, TOTAL 0.2 MG/DL (0.0-1.0); PRE OP GLUCOSE 80 MG/DL (70-104); PRE OP POTASSIUM 3.6 MMOL/L (3.4-5.1); PRE OP SODIUM 142 MMOL/L (135-145); TOTAL CARBON DIOXIDE 27.1 MMOL/L (24-32); TOTAL PROTEIN 7.9 G/DL (6.4-8.2); eGFR 88 ML/MIN
[~2019-11-23] VITALS: Ht 177.8 cm; Wt 131.0 kg
[2019-11-23] VITALS (19 sets, daily range): BP systolic 109–179; BP diastolic 58–110
[~2019-11-23 05:31] MED LIST changes: +ACET-1025 PO; +CBD OIL SL; -CHOL50004 PO; +DOCUMENT DATE & TIME OF BETA-BLOCKER PO ONE; -FLUO-1 PO; +GENTAMICIN IV ONE; +IBUP-1984 PO; +NORMAL SALINE IV ONE; -OXYC-150 PO; +THC OIL SL; +[UNRECOGNIZED DRUG - OTHER] SL; +clindamycin-Cleocin 900mg/D5W 50 ML IV ONE; +famotidine 20mg tablet PO ONE; +ringers solution, lacted 1,000 ML IV SCH
[2019-11-23] MEDS ORDERED: LIDOcaine 1% (10mg/ml) 2ml vial ONE (05:58)
[2019-11-23] MEDS ORDERED: clindamycin phosphate 40gm vag cream ONE (06:46)
[2019-11-23] MEDS ORDERED: BUPIVAcaine/PF 2.5 mg/ml (0.25%) 30ml vial ONE (06:46)
[2019-11-23] MEDS ORDERED: vasoPRESSIN 20 units/ml inj. ONE (06:47)
[2019-11-23] MEDS ORDERED: neomy sulf/polymyxin B sulf. GU irrigation 1ml amp IR ONE (06:47)
[2019-11-23] MEDS ORDERED: midazolam 2 mg/2 ml injection ONE (07:20)
[2019-11-23] MEDS ORDERED: fentaNYL /PF 50mcg/ml 5ml ampule ONE (07:21)
[2019-11-23] MEDS ORDERED: glycopyrrolate 0.2mg/ml inj ONE (07:24)
[2019-11-23] MEDS ORDERED: sevoflurane 250ml liquid IH ONE (07:24)
[2019-11-23] MEDS ORDERED: neostigmine methylsulfate 1 MG/ML 10ml vial ONE (07:24)
[2019-11-23] MEDS ORDERED: ringers solution, lacted 1,000 ML IV SCH (07:27)
[2019-11-23] MEDS ORDERED: ondansetron/PF 4mg/2ml inj IV PRN ×2 (07:30→09:45)
[2019-11-23] MEDS ORDERED: morphine 2 MG/ML inj. syringe IV PRN (07:30)
[2019-11-23] MEDS ORDERED: morphine 4 MG/ML inj SYRINge IV PRN (07:30)
[2019-11-23] MEDS ORDERED: meperidine/PF 25mg/ml syringe IV PRN ×3 (07:30)
[2019-11-23] MEDS ORDERED: proCHLORperazine 10 MG/2 ml inj IV PRN (07:30)
[2019-11-23] MEDS ORDERED: acetaminophen 1,000mg/100ml IV 100 ML IV PRN (07:30)
[2019-11-23] MEDS ORDERED: dexamethasone sod phosphate 4mg/ml inj. ONE (07:44)
[2019-11-23] MEDS ORDERED: ondansetron/PF 4mg/2ml inj ONE (07:44)
[2019-11-23] MEDS ORDERED: LIDOcaine 2% (20mg/ml) 5ml vial ONE (07:45)
[2019-11-23] MEDS ORDERED: rocuronium 10mg/ml inj IV ONE (07:45)
[2019-11-23] MEDS ORDERED: propofol inj 20 ML IV ONE (07:45)
[2019-11-23] MEDS ORDERED: morphine 10mg/ml inj. ONE (09:19)
[2019-11-23] MEDS ORDERED: diphenhydrAMINE 50 mg/ml inj IV PRN (09:45)
[2019-11-23] MEDS ORDERED: normal saline 500ml IV soln 500 ML IV PRN (09:45)
[2019-11-23] MEDS ORDERED: LORazepam 2 mg/ml vial IV PRN (09:45)
[2019-11-23] MEDS ORDERED: metoclopramide 5 mg/ml inj IV PRN (09:45)
[2019-11-23] MEDS ORDERED: temazepam 15mg capsule PO PRN (09:45)
[2019-11-23] MEDS ORDERED: magnesium hydroxide 30ml (MOM) UD suspension PO PRN (09:45)
[2019-11-23] MEDS ORDERED: HYDROcodone/acetaminophen 10/325mg tab PO PRN ×2 (09:45)
--- NOTE | 2019-11-23 10:00 | NUR ---
Received from OR via SURGICAL BED, accompanied by Anesthesiologist CONNOR and report given by Anesthesiolgist. PATIENT WITH 20G PIV IN LEFT UE RUNNING LR AT 100. 2 ABDOMINAL LAP SITES PRESENT AND CDI. DERMABONDED WITH NO DRAINAGE. HEIDI PAD IN PLACE. CDI. SCDS DONNED. 10L MASK ON WITH 96% SASTURATIONS. CALALHAN CATHETER IN WITH CLEAR YELLOW URINE IN ATRIUM. Addendum: 11/23/19 at 1011 by Luisito Alejandre RN RN Amended: Links added.
[2019-11-23] MEDS ORDERED: oxyCODONE/APAP 10/325mg tablet PO PRN (11:00)
--- NOTE | 2019-11-23 11:20 | NUR ---
TRANSFER: ALL CRITERIA FOR TRANSFER TO THE FLOOR HAS BEEN ACHIEVED. REPORT GIVEN AND ALL QUESTIONS ANSWERED, VSS. BED LOW 2 RAILS UP, CALL LIGHT PRESNET AND PATIENT HOOKED UP TO ALL LINES AND VSS. PATIENTS RN PRESENT TO ACCEPT CARE. SHAINA PUENTES PRESENT TO ACCEPT CARE Addendum: 11/23/19 at 1130 by Luisito Lilly - SHAINA MERRITT Amended: Links added.
--- NOTE | 2019-11-23 11:28 | NUR ---
Patient to room 350 B, alert and oriented, painful at this time, post op vitals started, peripad clean dry and intact, x2 lapsits, patient too painful to turn to check buttock at this time. Will reassess once pain is better controlled.
[2019-11-23] MEDS: ketorolac trometh. 30mg/ml inj. IV PRN ×2 (12:40→18:37)
[2019-11-23] MEDS: ringers solution, lacted 1,000 ML IV SCH ×3 (13:06→17:29)
[2019-11-23] MEDS: albuterol 2.5 MG/3 ML nebule NEB PRN (13:34)
[2019-11-23] MEDS: oxyCODONE/APAP 10/325mg tablet PO PRN ×2 (13:36→19:51)
--- NOTE | 2019-11-23 15:09 | NUR ---
Problems reprioritized. Patient report given, questions answered & plan of care reviewed with SHAINA Samuel.
--- NOTE | 2019-11-23 15:09 | NUR ---
Patient in room [facility]. I have received report from Netta MERRITT and had the opportunity to ask questions and assume patient care. Agree with patient assessment will continue to monitor. Patients pain 5/10 reassessment after pain medication.
[2019-11-23] MEDS ORDERED: ceFAZolin 1GM/D5W- ADD-VANTAGE 50 ML IV SCH (16:00)
[2019-11-23] MEDS: diphenhydrAMINE 25mg capsule PO PRN ×2 (17:09→17:18)
[2019-11-23] MEDS ORDERED: diphenhydrAMINE 25mg capsule PO ONE (17:15)
--- NOTE | 2019-11-23 17:15 | NUR ---
oil and gas superintendent Alta came to me and stated patients IV infiltrated and patient has a rash and complaining of facial swelling. Called Dr Lobato and received orders for 25mg PO Benadryl Q6H prn itching, also, received orders to DC Ancef. Gave patient 25 mg PO Benadryl and she stated she has her epi pen in her purse. I called Dr Lobato back and received order for another 25mg PO Benadryl. I advised Dr Lobato that patient is not short of breath and is making complete sentences. The left side of patients face is flushed red and she feels very warm. Per Dr Lobato non need for patient to use epi pen and if she does become short of breath ok to call Rapid response. Advised Dr Lobato patient is not short of breath. No other orders at this time. I will continue to monitor patient. IV tubing was discontinued and I replaced with New bag of LR @ 125. Patient allergy record is up to date and includes current medication Ancef.
--- NOTE | 2019-11-23 17:30 | NUR ---
Patient ambulating in hallway states she is feeling better and feels that the swelling is decreasing in her left arm. Will continue to monitor.
--- NOTE | 2019-11-23 18:48 | NUR ---
Patient in room [facility]. I have received report from SHAINA Samuel and had the opportunity to ask questions and assume patient care.
--- NOTE | 2019-11-23 19:01 | NUR ---
Problems reprioritized. Patient report given, questions answered & plan of care reviewed with Savita MERRITT.
[2019-11-23] MEDS: docusate sod 100mg capsule PO SCH (19:26)
--- NOTE | 2019-11-23 20:15 | NUR ---
Pt back in room from recovery. Addendum: 11/23/19 at 2023 by Savita Polanco RN Documentation for incorrect patient
[2019-11-24 00:23] VITALS: BP 104/59
[2019-11-24] MEDS: ketorolac trometh. 30mg/ml inj. IV PRN ×3 (01:35→13:57)
[2019-11-24] MEDS: oxyCODONE/APAP 10/325mg tablet PO PRN ×3 (02:33→15:07)
[2019-11-24] MEDS: albuterol 2.5 MG/3 ML nebule NEB PRN (05:25)
[2019-11-24 06:22] LABS: BASOPHILS % (AUTO) 0.2 % (0-1); EOSINOPHILS % (AUTO) 0.1 % (0-6); HEMATOCRIT 36.4 % (35.0-45.0); HEMOGLOBIN 11.9 g/dl (12.0-16.0); LYMPHOCYTES # (AUTO) 1.8 X10'3 (1.1-4.8); MEAN CORPUSCULAR HEMOGLOBIN 28.5 PG (27.0-31.0); MEAN CORPUSCULAR HGB CONC 32.7 g/dL (33.0-36.5); MEAN CORPUSCULAR VOLUME 87.2 FL (78-98); MEAN PLATELET VOLUME 7.5 FL (7.4-10.4); MONOCYTES # (AUTO) 0.5 X10'3 (0-0.9); MONOCYTES % (AUTO) 4.7 % (2-12); NEUTROPHILS # (AUTO) 9.1 X10'3 (1.8-7.7); PLATELET COUNT 348 X10'3 (140-440); RED BLOOD COUNT 4.17 X10'6 (4.20-5.60); WHITE BLOOD COUNT 11.5 X10'3 (4.5-11.0)
--- NOTE | 2019-11-24 06:25 | NUR ---
Patient in room [facility]. I have received report from SHAINA aBrney and had the opportunity to ask questions and assume patient care.
[2019-11-24 06:29] LABS: ALBUMIN 3.7 G/DL (3.4-5.0); ANION GAP 10 (8-16); BLOOD UREA NITROGEN 8 MG/DL (7-18); BUN/CREATININE RATIO 7.1 (6.6-38.0); CALCIUM 8.2 MG/DL (8.5-10.1); CHLORIDE 107 MMOL/L (99-107); CREATININE 1.13 MG/DL (0.40-0.90); GLUCOSE 121 MG/DL (70-104); POTASSIUM 3.6 MMOL/L (3.5-5.1); SODIUM 144 MMOL/L (135-145); TOTAL CARBON DIOXIDE 27.5 MMOL/L (24-32); eGFR 56 ML/MIN
[2019-11-24 06:30] VITALS: BP 127/67
--- NOTE | 2019-11-24 06:42 | NUR ---
Problems reprioritized. Patient report given, questions answered & plan of care reviewed with SHAINA Reyes.
[2019-11-24] MEDS ORDERED: metoprolol succinate 25mg (24-HOUR) SR. Tablet PO SCH (08:00)
[2019-11-24] MEDS: docusate sod 100mg capsule PO SCH (08:00)
[2019-11-24] MEDS ORDERED: enoxaparin 40mg/0.4ml syringe SQ SCH (08:00)
[2019-11-24 11:31] VITALS: BP 100/57
--- NOTE | 2019-11-24 15:30 | NUR ---
DC inst provided to pt. IV DC'd, tip intact. All belongings sent w/pt. WC to front lobby.
== END 2019-11-24 15:30 | disposition home or self-care (01) | DRG 513 ==
LOC: PAS 05:31 → OBSVTOIN 11:54 → SUR 3N 11:54
PROVIDERS: ADMIT Obstetrics & Gynecology Obstetrics; ATTEND Obstetrics & Gynecology Obstetrics
PROC: 0UB74ZZ Excision of Bilateral Fallopian Tubes, Percutaneous Endoscopic Approach (ICD-10-PCS; 2019-11-23)
PROC: 0UT9FZZ Resection of Uterus, Via Natural or Artificial Opening With Percutaneous Endoscopic Assistance (ICD-10-PCS; principal; 2019-11-23 07:24)
DX: N94.6 Dysmenorrhea, unspecified (principal); N92.1 Excessive and frequent menstruation with irregular cycle; R51 Headache; Z88.1 Allergy status to other antibiotic agents; Z88.0 Allergy status to penicillin; Z91.013 Allergy to seafood
CPT/HCPCS: 36415; 71046; 76937; 80048; 80053; 81001; 81025; 82948; 85025; 86885; 86900; 86901; 87081; 87635; 93005; 94640; 94760; A4314; A4618; A7000; G0378; J0131; J0690; J1100; J1580; J1885; J2001; J2175; J2250; J2270; J2405; J2704; J2710; J3010; J3490; J7120; Q0163

== ENCOUNTER → 2023-08-16 | Outpatient (CLI) | payer MEDICAID ==
[~2023-08-16] MED LIST changes: -DOCUMENT DATE & TIME OF BETA-BLOCKER PO ONE; -GENTAMICIN IV ONE; -NORMAL SALINE IV ONE; -clindamycin-Cleocin 900mg/D5W 50 ML IV ONE; -famotidine 20mg tablet PO ONE; -ringers solution, lacted 1,000 ML IV SCH
== END | disposition home or self-care (01) ==
LOC: RAD 09:22
PROVIDERS: ATTEND Nurse Practitioner Family
DX: R09.89 Other specified symptoms and signs involving the circulatory and respiratory systems (principal)
CPT/HCPCS: 71046